=== PATIENT | female | born 1980 | race Caucasian/White ===

== ENCOUNTER 2017-11-30 19:05 | Emergency (ER) | payer MEDICAID ==
[~2017-11-30] VITALS: Ht 152.4 cm; Wt 90.7 kg
[~2017-11-30 19:05] MED LIST: CLIN300C2; DOCU-94; HYDR-1421; IBU800T
[2017-11-30 19:10] VITALS: BP 124/76
[2017-11-30 20:07] LABS: Basophils # (auto) 0 uL; Basophils % (auto) 0.3 % (0.0-2.0); Eosinophils # (auto) 0.2 uL; Eosinophils % (auto) 1.2 % (0.0-7.0); Hematocrit 38.1 % (36.0-46.0); Hemoglobin 12.7 g/dL (12.2-16.2); Lymphocytes # (auto) 2.5 uL; Lymphocytes % (auto) 16.6 % (10.0-50.0); Mean Corpuscular Hemoglobin 29.6 pg (28.0-32.0); Mean Corpuscular Hgb Conc. 33.4 g/dL (32.0-36.0); Mean Corpuscular Volume 88.6 fL (80.0-100.0); Monocytes # (auto) 0.8 uL; Monocytes % (auto) 5.4 % (0.0-12.0); Neutrophils # (auto) 11.4 uL; Neutrophils % (auto) 76.5 % (37.0-80.0); Nucleated Red Blood Cells % 0.1 %; Platelet Count (auto) 301 10^3/uL (140-450); Red Cell Distribution Width 13.9 % (11.8-14.3); White Blood Cell 14.9 10^3/uL (4.4-10.8)
[2017-11-30 20:28] LABS: INR 0.93 (0.9-1.15); Partial Thromboplastin Time 27.8 sec (22.64-33.71); Prothrombin Time 10.1 sec (9.37-12.3)
[2017-11-30 20:30] LABS: Albumin 3.4 g/dL (3.4-5.0); BUN/Creatinine Ratio 18.3; Bilirubin, Total 0.4 mg/dL (0.2-1.0); Calcium 8.5 mg/dL (8.5-10.1); Potassium 4.1 mmol/L (3.5-5.1); Total Protein 7.3 g/dL (6.4-8.2)
== END 2017-11-30 22:56 | disposition left against medical advice (07) ==
LOC: EDBD 19:05 → ER 19:05
DX: R10.10 Upper abdominal pain, unspecified (principal); Z53.21 Procedure and treatment not carried out due to patient leaving prior to being seen by health care provider
CPT/HCPCS: 36415; 80053; 82150; 83690; 84702; 85025; 85610; 85730

== ENCOUNTER 2018-11-24 07:30 | Inpatient (IN) | payer MEDICAID | END 2018-11-25 17:25 | disposition home or self-care (01) | LOC: WEST WING 11-25 00:07 → ER 07:30 → OVERFLOW 13:57 → WEST WING 15:36 | DX: R10.9 Unspecified abdominal pain (principal); D72.829 Elevated white blood cell count, unspecified; R11.2 Nausea with vomiting, unspecified ==

== ENCOUNTER 2020-04-30 20:30 | Emergency (ER) | payer BC, MEDICAID ==
[~2020-04-30] VITALS: Ht 157.5 cm; Wt 113.4 kg
[~2020-04-30 20:30] MED LIST changes: -CLIN300C2; +CYCL10TA6 PO; -DOCU-94; -HYDR-1421; +HYDR-4833 PO; -IBU800T; +METR500T PO; +OMEP20TA PO
[2020-04-30 21:19] LABS: Basophils # (auto) 0.1 10 ^3/uL (0-0.2); Basophils % (auto) 0.8 % (0.0-2.0); Eosinophils # (auto) 0.3 10 ^3/uL (0-0.8); Eosinophils % (auto) 3.6 % (0.0-7.0); Hematocrit 37.2 % (36.0-46.0); Hemoglobin 12.7 g/dL (12.2-16.2); Lymphocytes # (auto) 3.8 10 ^3/uL (0.4-5.4); Lymphocytes % (auto) 51.1 % (10.0-50.0); Mean Corpuscular Hemoglobin 29.8 pg (28.0-32.0); Mean Corpuscular Hgb Conc. 34.3 g/dL (32.0-36.0); Mean Corpuscular Volume 86.9 fL (80.0-100.0); Monocytes # (auto) 0.6 10 ^3/uL (0-1.3); Monocytes % (auto) 7.8 % (0.0-12.0); Neutrophils # (auto) 2.7 10 ^3/uL (1.6-8.6); Neutrophils % (auto) 36.7 % (37.0-80.0); Nucleated Red Blood Cells % 0.1 %; Platelet Count (auto) 332 10^3/uL (140-450); Red Blood Cells 4.27 10^6/uL (4.0-5.20); Red Cell Distribution Width 12.7 % (11.8-14.3); White Blood Cell 7.4 10^3/uL (4.4-10.8)
[2020-04-30 21:33] LABS: Albumin 3.4 g/dL (3.4-5.0); BUN/Creatinine Ratio 19.4; Calcium 8.6 mg/dL (8.5-10.1); Potassium 4.1 mmol/L (3.5-5.1)
[2020-04-30 21:35] LABS: Bilirubin, Total 0.3 mg/dL (0.2-1.0); Total Protein 7.1 g/dL (6.4-8.2)
[2020-04-30 22:42] LABS: Urine Bacteria FEW /hpf (None Seen); Urine Blood 2+ /uL (Negative); Urine Mucus FEW (None Seen); Urine Specific Gravity 1.032 (1.001-1.035); Urine WBC 4 /hpf (0 - 5)
[2020-05-01 03:26] LABS: Amylase 52 U/L (25-115); Lipase 148 U/L (73-393)
[2020-05-01] MEDS ORDERED: MORPHINE SULFATE 4 MG/ML SYR/VIAL IV ONE (04:00)
[2020-05-01] MEDS ORDERED: ONDANSETRON HCL 4 MG/2 ML VIAL IV ONE (04:00)
[2020-05-01 04:10] VITALS: BP 131/78
[2020-05-01] MEDS ORDERED: HYDROmorphone HCL 2 MG/ML VL IM ONE (05:30)
== END 2020-05-01 06:07 | disposition home or self-care (01) ==
LOC: ER 20:37
DX: K59.00 Constipation, unspecified (principal); R10.13 Epigastric pain; Z98.84 Bariatric surgery status; Z90.89 Acquired absence of other organs; Z90.49 Acquired absence of other specified parts of digestive tract; Z98.890 Other specified postprocedural states; Z79.899 Other long term (current) drug therapy; Z88.5 Allergy status to narcotic agent; Z88.0 Allergy status to penicillin; Z88.8 Allergy status to other drugs, medicaments and biological substances
CPT/HCPCS: 36415; 74176; 80053; 81001; 82150; 83690; 85025; 96372; 96374; 96375; 99284; J1170; J2270; J2405

== ENCOUNTER 2022-12-07 23:21 | Emergency (ER) | payer BC ==
[~2022-12-07] VITALS: Ht 157.5 cm; Wt 117.0 kg
[~2022-12-07 23:21] MED LIST changes: +CYCL-839 PO; -CYCL10TA6 PO
[2022-12-08 01:32] LABS: Basophils # (auto) 0 10 ^3/uL (0-0.2); Basophils % (auto) 0.2 % (0.0-2.0); Eosinophils # (auto) 0.1 10 ^3/uL (0-0.8); Eosinophils % (auto) 2.2 % (0.0-7.0); Hematocrit 36.7 % (36.0-46.0); Hemoglobin 12.6 g/dL (12.2-16.2); Lymphocytes % (auto) 16.8 % (10.0-50.0); Mean Corpuscular Hemoglobin 29.6 pg (28.0-32.0); Mean Corpuscular Hgb Conc. 34.2 g/dL (32.0-36.0); Mean Corpuscular Volume 86.5 fL (80.0-100.0); Monocytes # (auto) 0.5 10 ^3/uL (0-1.3); Monocytes % (auto) 8.7 % (0.0-12.0); Neutrophils # (auto) 4.3 10 ^3/uL (1.6-8.6); Neutrophils % (auto) 72.1 % (37.0-80.0); Nucleated Red Blood Cells % 0.1 %; Red Blood Cells 4.25 10^6/uL (4.0-5.20); Red Cell Distribution Width 13.3 % (11.8-14.3); White Blood Cell 5.9 10^3/uL (4.4-10.8)
[2022-12-08 01:50] LABS: Albumin 3.2 g/dL (3.4-5.0); BUN/Creatinine Ratio 23.9 (10.0-20.0); Calcium 7.9 mg/dL (8.5-10.1); Potassium 3.5 mmol/L (3.5-5.1)
[2022-12-08 01:53] LABS: Bilirubin, Total 0.9 mg/dL (0.2-1.0); Total Protein 7.2 g/dL (6.4-8.2)
[2022-12-08 03:20] LABS: Urine Bacteria NONE SEEN /hpf (None Seen); Urine Blood 2+ /uL (Negative); Urine Mucus FEW (None Seen); Urine Specific Gravity 1.034 (1.001-1.035); Urine WBC 3 /hpf (0 - 5)
[2022-12-08] MEDS ORDERED: OXYCODONE W/ ACETAMINOPHEN 5/325MG TABLET PO ONE (05:15)
[2022-12-08] MEDS ORDERED: HYDROcodone-ACET 5/325MG TAB PO ONE (05:15)
[2022-12-08] MEDS ORDERED: ONDANSETRON ODT 4 MG TAB PO ONE (05:15)
[2022-12-08] MEDS ORDERED: PERCOT PO (05:38)
[2022-12-08] MEDS ORDERED: ONDA-144 PO (05:38)
[2022-12-08] MEDS ORDERED: CIPR-173 PO (05:38)
[2022-12-08] MEDS ORDERED: CIPROFLOXACIN HCL 500 MG TAB PO ONE (05:45)
[2022-12-08 05:50] VITALS: BP 117/65
== END 2022-12-08 05:55 | disposition home or self-care (01) ==
LOC: EDBD 23:21 → ER 23:21
DX: N39.0 Urinary tract infection, site not specified (principal); K52.9 Noninfective gastroenteritis and colitis, unspecified; Z90.89 Acquired absence of other organs; Z90.49 Acquired absence of other specified parts of digestive tract; Z98.890 Other specified postprocedural states; Z88.5 Allergy status to narcotic agent; Z88.0 Allergy status to penicillin; Z88.8 Allergy status to other drugs, medicaments and biological substances
CPT/HCPCS: 36415; 74176; 80053; 81001; 81025; 83690; 85025; 99284; Q0162